=== PATIENT | male | born 1960 | race Two or more races ===

== ENCOUNTER 2016-05-19 20:11 | Emergency (ER) | payer SELFPAY ==
[~2016-05-19] VITALS: Ht 167.6 cm; Wt 63.5 kg
--- NOTE | 2016-05-19 20:09 | Emergency Room Report ---
History of Present Illness General Source: Medical Record, EMS Present Illness HPI 46 YOM BIBEMS after found on someones front yard leaning against his card, obviously intoxicated. Atraumatic per EMS. Per staff, patient has been here multiple times. EMS also recognizes patient. HPI otherwise limited d/t intoxication. Allergies: Coded Allergies: UNABLE TO ASSESS (Unverified , 05/19/16) Patient History Limited by: medical condition Past Medical History: old chart reviewed, unable to obtain Past Surgical History: unable to obtain Pertinent Family History: unable to obtain Social History: Reports: alcohol use Immunizations: UTD Reviewed Nursing Documentation: PMH: Agreed, PSxH: Agreed Review of Systems All Other Systems: limited - Acute intox Physical Exam Sp02 EP Interpretation: reviewed, normal General Appearance: normal inspection, well appearing, no apparent distress, other - Deeply asleep, +AOB Head: normocephalic, atraumatic Eyes: bilateral eye EOMI, bilateral eye PERRL ENT: normal ENT inspection Neck: normal inspection, full range of motion, supple, no bony tend Respiratory: normal inspection, lungs clear, normal breath sounds, no rhonchi, no respiratory distress, no retraction, no accessory muscle use, no wheezing Cardiovascular #1: normal inspection, normal peripheral pulses, regular rate, rhythm, no edema Gastrointestinal: normal inspection, normal bowel sounds, non tender, soft, no guarding, no hernia Genitourinary: no CVA tenderness Musculoskeletal: normal inspection, back normal, normal range of motion, Yan' s Sign negative Neurologic: normal inspection, responsive, speech normal, other - focal extremity movement intact Skin: no rash Medical Decision Making Diagnostic Impression: Primary Impression: Alcohol intoxication Qualified Codes: F10.120 - Alcohol abuse with intoxication, uncomplicated ER Course Acute uncomplicated alcohol intox. VSS. Afebrile. Atraumatic. No focal neuro deficits. Patient with previous visits to ED for same Will provide safe environment for sobriety with repeat serial exams, vital signs check Endorsed to Dr Sue at 930pm to followup sobriety BOSTON KELLY M.D. May 19, 2016 20:09
[2016-05-19 20:21] VITALS: BP 102/66
[2016-05-19 22:33] VITALS: BP 97/59
[2016-05-20 04:00] VITALS: BP 99/60
[2016-05-20 05:20] VITALS: BP 100/72
[2016-05-20 05:55] VITALS: BP 100/72
== END 2016-05-20 05:30 | disposition home or self-care (01) ==
LOC: EDBD 20:11 → EMR 21:06
DX: F10.120 Alcohol abuse with intoxication, uncomplicated (principal)
CPT/HCPCS: 82962; 99282